=== PATIENT | male | born 1955 | race Two or more races ===

== ENCOUNTER 2024-11-28 06:24 | Inpatient (IN) | payer OTHER ==
[~2024-11-28] VITALS: Ht 172.7 cm; Wt 95.6 kg
--- NOTE | 2024-11-28 06:39 | ED.PDOC ---
HPI (NEURO) HPI Comments This is a 69 year old male GRISELDAA presenting to the ED with chief complaint of left sided weakness. Patient reports that he has been experiencing left sided arm and leg weakness with associated left sided facial droop since Tuesday. Patient relays that he noticed his weakness when he could not open a bottle and had trouble drinking out of it, but thought it would get better over time and did not come to the ED. Patient denies any chest pain, SOB, dizziness, N/V/D, abdominal pain, headache, tingling, or numbness of extremities. Chief Complaint: Left Sided Weakness Time Seen by MD: 06:27 Reviewed Notes: Nurses Notes, Fisheries Management Biologist Notes, Medications, Allergies Information Source: Patient, Emergency Med Personnel Mode of Arrival: EMS Severity: Moderate Dizziness/Weakness Severity: Unable to do activities Headache Severity: None Timing: Days Duration: Since onset Prehospital treatment: None Weakness Location: (L) Arm, (L) Leg Onset: At rest Circumstances: Spontaneous Symptoms: Weakness Before: Normal Past Medical History PAST MEDICAL HISTORY: Denies Surgical History: Denies all surgeries Family History Family History: Reviewed,noncontributory to illness Social History Smoker: Non-Smoker Alcohol: Denies ETOH Use Drugs: Denies Drug Use Lives In: Home Constitutional: denies: chills, diaphoresis, fatigue, fever, malaise, sweats, weakness, others EENTM: denies: blurred vision, double vision, ear bleeding, ear discharge, ear drainage, ear pain, ear ringing, eye pain, eye redness, hearing loss, mouth pain, mouth swelling, nasal discharge, nose bleeding, nose congestion, nose pain, photophobia, tearing, throat pain, throat swelling, voice changes, others Respiratory: denies: cough, hemoptysis, orthopnea, SOB at rest, shortness of breath, SOB with excertion, stridor, wheezing, others Cardiovascular: denies: chest pain, dizzy spells, diaphoresis, Dyspnea on exertion, edema, irregular heart beat, left arm pain, lightheadedness, palpitations, PND, syncope, others Gastrointestinal: denies: abdomen distended, abdominal pain, blood streaked bowels, constipated, diarrhea, dysphagia, difficulty swallowing, hematemesis, melena, nausea, poor appetite, poor fluid intake, rectal bleeding, rectal pain, vomiting, others Genitourinary: denies: burning, dysuria, flank pain, frequency, hematuria, incontinence, penile discharge, penile sore, pain, testicle pain, testicle swelling, urgency, others Neurological: reports: left sided weakness; denies: dizziness, fainting, headache, left sided numbness, numbness, paresthesia, pre-existing deficit, right sided numbness, right sided weakness, seizure, speech problems, tingling, tremors, weakness, others Musculoskeletal: denies: back pain, gout, joint pain, joint swelling, muscle pain, muscle stiffness, neck pain, others Integumetry: denies: bruises, change in color, change in hair/nails, dryness, laceration, lesions, lumps, rash, wounds, others Allergic/Immunocompromised: denies: Difficulty Healing, Frequent Infections, Hives, Itching, others Hematologic/Lymphatic: denies: anemia, blood clots, easy bleeding, easy bruising, swollen glands, others Endocrine: denies: excessive hunger, excessive sweating, excessive thirst, excessive urination, flushing, intolerance to cold, intolerance to heat, unexplained weight gain, unexplained weight loss, others Psychiatric: denies: anxiety, bipolar disorder, depression, hopeless, panic disorder, schizophrenia, sleepless, suicidal, others All Other Systems: Reviewed and Negative Physical Exam General Appearance: No Apparent Distress, Normal HEENT: Normal ENT Inspection, Pharynx Normal, TMs Normal, Other (Left sided facial droop noted.) Neck: Full Range of Motion, Non-Tender, Normal, Normal Inspection Respiratory: Chest Non-Tender, Lungs Clear, No Accessory Muscle Use, No Respiratory Distress, Normal Breath Sounds Cardiovascular: No Edema, No JVD, No Murmur, No Gallop, Normal Peripheral Pulses, Regular Rate/Rhythm Breast Exam: Deferred Gastrointestinal: No Organomegaly, Non Tender, No Pulsatile Mass, Normal Bowel Sounds, Soft Genitalia: Deferred Pelvic: Deferred Rectal: Deferred Extremities: No calf tenderness, Normal capillary refill, Normal inspection, Normal range of motion, Non-tender, No pedal edema Musculoskeletal : Apperance: Normal Neurologic: Alert, data acquisition technician II-XII nml as Tested, Other (Left sided arm and leg strength 3/5.) Cerebellar Function: Normal Reflexes: Normal Skin: Dry, Normal Color, Warm Lymphatic: No Adenopathy Was a procedure done? Was a procedure done?: No Differential Diagnosis (SZ) Seizure: N/A CVA: CVA, Electrolyte Imbalance, Hypoxemia General Weakness: N/A Headache: N/A X-Ray, Labs, Meds, VS Vital Signs Date Time Temp Pulse Resp B/P (MAP) Pulse Ox O2 Delivery O2 Flow Rate FiO2 11/28/24 07:48 97.4 62 16 141/71 (94) 97 97.4 11/28/24 07:48 62 16 98 Room Air* 0 21 11/28/24 06:47 66 18 96 Room Air* 0 21 11/28/24 06:47 98.1 66 18 149/66 (93) 98.1 11/28/24 06:25 98.7 75 22 169/93 (118) 98 98.7 Lab Test 11/28/24 08:01 11/28/24 06:34 Range/Units Troponin I High Sensitivity Pending 11 </=54 ng/L White Blood Count 6.1 4.4-10.8 10^3/uL Red Blood Count 4.92 4.5-5.90 10^6/uL Hemoglobin 15.1 13.5-17.5 g/dL Hematocrit 44.6 41.0-53.0 % Mean Corpuscular Volume 90.6 80.0-100.0 fL Mean Corpuscular Hemoglobin 30.7 28.0-32.0 pg Mean Corpuscular Hemoglobin Concent 33.9 32.0-36.0 g/dL Red Cell Distribution Width 13.7 11.8-14.3 % Platelet Count 170 140-450 10^3/uL Mean Platelet Volume 9.5 6.9-10.8 fL Neutrophils (%) (Auto) 64.8 37.0-80.0 % Lymphocytes (%) (Auto) 25.7 10.0-50.0 % Monocytes (%) (Auto) 6.5 0.0-12.0 % Eosinophils (%) (Auto) 2.4 0.0-7.0 % Basophils (%) (Auto) 0.6 0.0-2.0 % Neutrophils # (Auto) 3.9 1.6-8.6 10 ^3/uL Lymphocytes # (Auto) 1.6 0.4-5.4 10 ^3/uL Monocytes # (Auto) 0.4 0-1.3 10 ^3/uL Eosinophils # (Auto) 0.1 0-0.8 10 ^3/uL Basophils # (Auto) 0 0-0.2 10 ^3/uL Nucleated Red Blood Cells 0.0 % Sodium Level 141 136-145 mmol/L Potassium Level 4.2 3.5-5.1 mmol/L Chloride Level 107 98-107 mmol/L Carbon Dioxide Level 25 20-31 mmol/L Anion Gap 9 5-15 Blood Urea Nitrogen 13 9-23 mg/dL Creatinine 0.89 0.700-1.30 mg/dL Glomerular Filtration Rate Calc 93 >90 mL/min BUN/Creatinine Ratio 14.6 10.0-20.0 Serum Glucose 127 H 74-106 mg/dL Calcium Level 9.5 8.7-10.4 mg/dL CT Head: FINDINGS: There is no acute intracranial hemorrhage. No mass effect or midline shift. Small lucency in the right basal ganglia possible chronic lacunar infarct or prominent perivascular space. Focal area hypoattenuation in the right anterior frontal lobe, likely secondary to infarct, of uncertain age, possibly subacute, measuring up to 2.6 cm in greatest dimension. Focal area of hypoattenuation more posteriorly in the right parietal lobe appears chronic or subacute to chronic. The ventricles and sulci are within normal limits in size for age. Basal cisterns are patent. The calvarium is unremarkable. Paranasal sinuses and mastoid air cells are clear. IMPRESSION: 1. No evidence of acute intracranial hemorrhage. 2. Focal areas of hypoattenuation in the right frontal and parietal lobes, with the area of hypoattenuation in the anterior right frontal lobe possibly subacute. The area of hypoattenuation in the parietal lobe is most likely chronic or subacute to chronic. Correlate with clinical findings. If clinically indicated, MRI could be obtained. Chest XR: FINDINGS: LUNGS AND PLEURAL SPACES: Unremarkable. No consolidation. No pneumothorax. HEART: Unremarkable. No cardiomegaly. MEDIASTINUM: Unremarkable. Normal mediastinal contour. BONES/JOINTS: Unremarkable. No acute fracture. OTHER FINDINGS: . IMPRESSION: No acute cardiopulmonary process. Images Reviewed?: Images reviewed and evaluated by me Time of 1ST Reevaluation: 07:27 Reevaluation 1ST: Unchanged Patient Education/Counseling: Diagnosis, Treatment Family Education/Counseling: No Family Present Additional Information Previous visits reviewed: None The following tests were ordered, and results were reviewed by me: CBC, BMP, Troponin, UA, Chest XR, CT Head Additional Information was gathered from interviewing the following independent historians: EMS I reviewed and agreed with the following test results read by other providers: Chest XR, CT Head I discussed treatment and results with medical personnel and: patient Comprehensive systems review obtained and negative except for what is stated in the HPI. Departure 1 Departure Time of Disposition: 08:40 (Patient with CVA. Patient's said the window for any acute interventions. We will admit patient for further workup and expert consultation) Impression: Primary Impression: CVA (cerebral vascular accident) Qualified Codes: I63.9 - Cerebral infarction, unspecified Disposition: 09 ADMITTED INPATIENT Admit to: Med Surg Condition: Serious Critical Care Note Critical Care Time?: Yes Critical care comment: Concern for CVA Authorized and Performed by: Remigio Valencia MD Total critical care time: Approximately 38 minutes Due to a high probability of clinically significant, life threatening deterioration, the patient required my highest level of preparedness to intervene emergently and I personally spent this critical care time directly and personally managing the patient. This critical care time included obtaining a history; examining the patient; pulse oximetry; ordering and review of studies; arranging urgent treatment with development of a management plan; evaluation of patient's response to treatment; frequent reassessment; and, discussions with other providers. This critical care time was performed to assess and manage the high probability of imminent, life-threatening deterioration that could result in multi-organ failure. It was exclusive of separately billable procedures and treating other patients and teaching time. Please see my other sections and the rest of the note for further information on patient assessment and treatment. Stability Stability form required: No Heart Score Heart Score: Heart Score Response (Comments) Value History N/A 0 EKG N/A 0 Age N/A 0 Risk Factors N/A 0 Troponin N/A 0 Total 0 I personally scribed for REMIGIO VALENCIA MD ([email or web address]) on 11/28/24 at 06:39. Electronically submitted by Jhonathan Cano ([email or web address]). I personally scribed for REMIGIO VALENCIA MD ([email or web address]) on 11/28/24 at 06:48. Electronically submitted by Jhonathan Cano ([email or web address]). I personally scribed for REMIGIO VALENCIA MD ([email or web address]) on 11/28/24 at 08:33. Electronically submitted by Jhonathan Cano ([email or web address]). REMIGIO VALENCIA MD Nov 28, 2024 06:39
[2024-11-28 06:47] VITALS: PULSE 66; RESP 18; O2SAT 96
[2024-11-28 06:50] LABS: Basophils # (auto) 0 10 ^3/uL (0-0.2); Basophils % (auto) 0.6 % (0.0-2.0); Eosinophils # (auto) 0.1 10 ^3/uL (0-0.8); Eosinophils % (auto) 2.4 % (0.0-7.0); Hematocrit 44.6 % (41.0-53.0); Hemoglobin 15.1 g/dL (13.5-17.5); Lymphocytes # (auto) 1.6 10 ^3/uL (0.4-5.4); Lymphocytes % (auto) 25.7 % (10.0-50.0); Mean Corpuscular Hemoglobin 30.7 pg (28.0-32.0); Mean Corpuscular Hgb Conc. 33.9 g/dL (32.0-36.0); Mean Corpuscular Volume 90.6 fL (80.0-100.0); Monocytes # (auto) 0.4 10 ^3/uL (0-1.3); Monocytes % (auto) 6.5 % (0.0-12.0); Neutrophils # (auto) 3.9 10 ^3/uL (1.6-8.6); Neutrophils % (auto) 64.8 % (37.0-80.0); Platelet Count (auto) 170 10^3/uL (140-450); Red Blood Cells 4.92 10^6/uL (4.5-5.90); Red Cell Distribution Width 13.7 % (11.8-14.3); White Blood Cell 6.1 10^3/uL (4.4-10.8)
[2024-11-28 07:00] LABS: Chloride 107 mmol/L (98-107); Potassium 4.2 mmol/L (3.5-5.1); Sodium 141 mmol/L (136-145)
[2024-11-28 07:01] LABS: Anion Gap 9 (5-15); Carbon Dioxide 25 mmol/L (20-31)
[2024-11-28 07:02] LABS: Calcium 9.5 mg/dL (8.7-10.4)
[2024-11-28 07:07] LABS: BUN/Creatinine Ratio 14.6 (10.0-20.0); Blood Urea Nitrogen 13 mg/dL (9-23)
[2024-11-28 07:08] LABS: Glucose 127 mg/dL (74-106)
--- NOTE | 2024-11-28 07:24 | DVH ---
EXAM: XR Chest, 1 View CLINICAL INDICATION: left sided weakness TECHNIQUE: Frontal view of the chest. COMPARISON: None FINDINGS: LUNGS AND PLEURAL SPACES: Unremarkable. No consolidation. No pneumothorax. HEART: Unremarkable. No cardiomegaly. MEDIASTINUM: Unremarkable. Normal mediastinal contour. BONES/JOINTS: Unremarkable. No acute fracture. OTHER FINDINGS: . IMPRESSION: No acute cardiopulmonary process.
--- NOTE | 2024-11-28 07:38 | DVH ---
CLINICAL INFORMATION: 69 years old, Male; left sided weakness. TECHNIQUE: Axial imaging was obtained through the brain without contrast. Coronal and sagittal reform atted images were obtained, reviewed, and stored. Images were reviewed in brain and bone windows. Al l CT scans at this medical facility are performed using dose modulation techniques as appropriate to a performed exam including the following: Automated exposure control was utilized; adjustment of the MA and/or KV according to patient size; and use of iterative reconstruction technique. CTDIvol = 57.2 mGy DLP = 916.87 mGy-cm COMPARISON: None FINDINGS: There is no acute intracranial hemorrhage. No mass effect or midline shift. Small lucency i n the right basal ganglia possible chronic lacunar infarct or prominent perivascular space. Focal are a hypoattenuation in the right anterior frontal lobe, likely secondary to infarct, of uncertain age, possibly subacute, measuring up to 2.6 cm in greatest dimension. Focal area of hypoattenuation more posteriorly in the right parietal lobe appears chronic or subacute to chronic. The ventricles and s ulci are within normal limits in size for age. Basal cisterns are patent. The calvarium is unremarka ble. Paranasal sinuses and mastoid air cells are clear. IMPRESSION: 1. No evidence of acute intracranial hemorrhage. 2. Focal areas of hypoattenuation in the right frontal and parietal lobes, with the area of hypoatten uation in the anterior right frontal lobe possibly subacute. The area of hypoattenuation in the parie bobby lobe is most likely chronic or subacute to chronic. Correlate with clinical findings. If clinical ly indicated, MRI could be obtained.
[2024-11-28 07:48] VITALS: PULSE 62; RESP 16; O2SAT 98
[2024-11-28] MEDS ORDERED: HYDROcodone-ACET 5/325MG TAB PO PRN (12:00)
[2024-11-28] MEDS ORDERED: DOCUSATE SOD 100 MG CAP PO PRN (12:00)
[2024-11-28] MEDS ORDERED: ONDANSETRON HCL 4 MG/2 ML VIAL IV PRN (12:00)
[2024-11-28] MEDS ORDERED: ACETAMINOPHEN 325 MG TAB PO PRN (12:00)
[2024-11-28 12:26] LABS: Urine Bacteria None Seen /hpf (None Seen)
[2024-11-28 12:30] LABS: Urine Blood Negative /uL (Negative); Urine Clarity Clear (Clear); Urine Color Light-Yellow (Yellow); Urine Protein, UAD Negative (Negative); Urine Specific Gravity 1.015 (1.001-1.035); Urine Squamous Epithelial Cell None Seen /hpf (<5); Urine Urobilinogen Normal (Negative); Urine WBC < 1 /HPF (0-3)
[2024-11-28] MEDS: SODIUM CHLOR 0.9% PF (SALINE LOCK) 10ML VIAL/SYR IV SCH (14:14)
--- NOTE | 2024-11-28 14:32 | DVHHP2 ---
History of Present Illness Reason for Visit: Left-sided weakness History of Present Illness The patient is a 69-year-old male who denies past medical history presented to [facility] ED with complaint of left-sided weakness for the past 4 days. Patient reports experiencing left-sided arm and leg weakness, left-sided facial droop, unable to open a bottle of water, had trouble drinking out of bottle water, getting worse today that prompted this visit. Patient was seen and evaluated in the ED, laboratory data shows WBC 6.1, platelets 170, sodium 141, potassium 4.2, BUN 13, creatinine 0.69, glucose 127, calcium 9.5, troponin 10, blood pressure 148/76, heart rate 65, temperature 97.6 F, O2 saturation 97% on room air. Head CT showed no evidence of acute intracranial hemorrhage. Please see medication orders section in the computer. My assessment, at bedside, patient denied chest pain, no diaphoresis, headache, no dizziness, no blurry vision, no shortness of breath, no nausea, no vomiting, no fever, no chills. Patient was admitted for further evaluation and medical management. Past Medical History Denies past medical history Past Surgical History Denies all surgeries Family History Reviewed, noncontributory to the management of this case. Past Social History The patient lives at home, denies smoking, alcohol or illicit drugs abuse. Review of Systems Constitutional: No: Fever, Chills, Sweats, Weakness, Malaise, Other Eyes: No: Pain, Vision change, Conjunctivae inflammation, Eyelid inflammation, Other, Redness ENT: No: Ear pain, Ear discharge, Nose pain, Nose discharge, Nose congestion, Mouth pain, Mouth swelling, Throat pain, Throat swelling, Other Respiratory: No: Cough, Dry, Shortness of breath, SOB with excertion, Wheezing, Hemoptysis, Pleuritic Pain, Sputum, Wheezing, Other Cardiovascular: No: Chest Pain, Palpitations, Orthopnea, Paroxysmal Noc. Dyspnea, Edema, Lt Headedness, Other Gastrointestinal: No: Nausea, Vomiting, Abdominal Pain, Diarrhea, Constipation, Melena, Hematochezia, Other Genitourinary: No Dysuria, No Frequency, No Incontinence, No Hematuria, No Retention, No Other Musculoskeletal: No: other, neck pain, shoulder pain, arm pain, back pain, hand pain, leg pain, foot pain Skin: No: Rash, Lesions, Jaundice, Bruising, Other Neurological: Other (Left-sided weakness); No: Weakness, Numbness, Incoordination, Change in speech, Confusion, Seizures Allergies: Coded Allergies: NO KNOWN ALLERGIES (Unverified , 11/28/24) Medications Current Medications Medications Dose Ordered Sig/Patty Route Start Time Stop Time Status Last Admin Dose Admin Hydralazine HCl 10 mg Q6HP PRN IV 11/28/24 12:00 Sodium Chloride 10 ml Q8HR IV 11/28/24 14:00 11/28/24 14:14 10 ML Acetaminophen/ Hydrocodone Bitart 1 tab Q4HP PRN PO 11/28/24 12:00 Ondansetron HCl 4 mg Q4HP PRN IV 11/28/24 12:00 Docusate Sodium 100 mg BIDPRN PRN PO 11/28/24 12:00 Acetaminophen 650 mg Q6HP PRN PO 11/28/24 12:00 Exam Vital Signs Vital Signs Date Time Temp Pulse Resp B/P (MAP) Pulse Ox O2 Delivery O2 Flow Rate FiO2 11/28/24 14:12 73 16 156/72 (100) 96 11/28/24 12:00 98.1 98.1 11/28/24 07:48 Room Air* 0 21 General Appearance: Alert, Oriented X3, Cooperative, No acute distress HEENT: Atraumatic, PERRLA, EOMI, Mucous membr. moist/pink Respiratory: Clear to auscultation, Normal air movement Cardiovascular: Regular rate, Normal S1, Normal S2, No murmurs Abdominal: Normal bowel sounds, Soft, No tenderness, No hepatospenomegaly, No masses Extremities: No clubbing, No cyanosis, No edema, Normal pulses, No tenderness/swelling Skin: No rashes, No breakdown, No significant lesion Neuro: Normal speech, Normal tone, Sensation intact, Cranial nerves 3-12 NL, Reflexes 2+, Other (Left-sided weakness) Psych/Mental Status: Mental status NL, Mood NL Labs/Xrays Labs Test 11/28/24 10:13 11/28/24 09:00 11/28/24 06:34 Range/Units Troponin I High Sensitivity 10 </=54 ng/L Urine Color Light-yellow Yellow Urine Clarity Clear Clear Urine pH 7.0 5.0-9.0 Urine Specific [place] 1.015 1.001-1.035 Urine Protein Negative Negative Urine Ketones Negative Negative Urine Blood Negative Negative /uL Urine Nitrite Negative Negative Urine Bilirubin Negative Negative Urine Urobilinogen Normal Negative mg/dL Urine Leukocyte Esterase Negative Negative /uL Urine RBC 1 0 - 3 /hpf Urine Microscopic WBC < 1 0-3 /HPF Urine Squamous Epithelial Cells None seen <5 /hpf Urine Bacteria None seen None Seen /hpf Urine Glucose Normal Normal mg/dL White Blood Count 6.1 4.4-10.8 10^3/uL Red Blood Count 4.92 4.5-5.90 10^6/uL Hemoglobin 15.1 13.5-17.5 g/dL Hematocrit 44.6 41.0-53.0 % Mean Corpuscular Volume 90.6 80.0-100.0 fL Mean Corpuscular Hemoglobin 30.7 28.0-32.0 pg Mean Corpuscular Hemoglobin Concent 33.9 32.0-36.0 g/dL Red Cell Distribution Width 13.7 11.8-14.3 % Platelet Count 170 140-450 10^3/uL Mean Platelet Volume 9.5 6.9-10.8 fL Neutrophils (%) (Auto) 64.8 37.0-80.0 % Lymphocytes (%) (Auto) 25.7 10.0-50.0 % Monocytes (%) (Auto) 6.5 0.0-12.0 % Eosinophils (%) (Auto) 2.4 0.0-7.0 % Basophils (%) (Auto) 0.6 0.0-2.0 % Neutrophils # (Auto) 3.9 1.6-8.6 10 ^3/uL Lymphocytes # (Auto) 1.6 0.4-5.4 10 ^3/uL Monocytes # (Auto) 0.4 0-1.3 10 ^3/uL Eosinophils # (Auto) 0.1 0-0.8 10 ^3/uL Basophils # (Auto) 0 0-0.2 10 ^3/uL Nucleated Red Blood Cells 0.0 % Sodium Level 141 136-145 mmol/L Potassium Level 4.2 3.5-5.1 mmol/L Chloride Level 107 98-107 mmol/L Carbon Dioxide Level 25 20-31 mmol/L Anion Gap 9 5-15 Blood Urea Nitrogen 13 9-23 mg/dL Creatinine 0.89 0.700-1.30 mg/dL Glomerular Filtration Rate Calc 93 >90 mL/min BUN/Creatinine Ratio 14.6 10.0-20.0 Serum Glucose 127 H 74-106 mg/dL Calcium Level 9.5 8.7-10.4 mg/dL PATIENT: BOB KHALIL ACCT: [id number] UNIT: [id number] : 1955 LOC: ER ROOM / BED: / AGE / SEX: 69 / M ADM STATUS: REG ER SERVICE 5 ORDERING PHYSICIAN: REMIGIO BENEDICT MD PROCEDURE(s): HWOCT - HEAD WITHOUT CONTRAST REASON: left sided weakness ORDER NUMBER(s): [id number], ACCESSION NUMBER(s): [id number] CLINICAL INFORMATION: 69 years old, Male; left sided weakness. TECHNIQUE: Axial imaging was obtained through the brain without contrast. Coronal and sagittal reformatted images were obtained, reviewed, and stored. Images were reviewed in brain and bone windows. All CT scans at this medical facility are performed using dose modulation techniques as appropriate to a performed exam including the following: Automated exposure control was utilized; adjustment of the MA and/or KV according to patient size; and use of iterative reconstruction technique. CTDIvol = 57.2 mGy DLP = 916.87 mGy-cm COMPARISON: None FINDINGS: There is no acute intracranial hemorrhage. No mass effect or midline shift. Small lucency in the right basal ganglia possible chronic lacunar infarct or prominent perivascular space. Focal area hypoattenuation in the right anterior frontal lobe, likely secondary to infarct, of uncertain age, possibly subacute, measuring up to 2.6 cm in greatest dimension. Focal area of hypoattenuation more posteriorly in the right parietal lobe appears chronic or subacute to chronic. The ventricles and sulci are within normal limits in size for age. Basal cisterns are patent. The calvarium is unremarkable. Paranasal sinuses and mastoid air cells are clear. IMPRESSION: 1. No evidence of acute intracranial hemorrhage. ORDERING PHYSICIAN: REMIGIO BENEDICT MD PROCEDURE(s): CXRP - CHEST PORTABLE REASON: left sided weakness ORDER NUMBER(s): [id number], ACCESSION NUMBER(s): [id number] EXAM: XR Chest, 1 View CLINICAL INDICATION: left sided weakness TECHNIQUE: Frontal view of the chest. COMPARISON: None FINDINGS: LUNGS AND PLEURAL SPACES: Unremarkable. No consolidation. No pneumothorax. HEART: Unremarkable. No cardiomegaly. MEDIASTINUM: Unremarkable. Normal mediastinal contour. BONES/JOINTS: Unremarkable. No acute fracture. OTHER FINDINGS: IMPRESSION: No acute cardiopulmonary process. Assessment/Plan Assessment/Plan CVA (cerebral vascular accident) Left-sided weakness Cerebral infarction, unspecified Plan 1. Admit to telemetry unit 2. Breathing treatment 3. Pain control management 4. Management of fluids and electrolytes 5. Consultation for neurology 6. Diagnostic tests head CT 7. DVT prophylaxis-on aspirin 8. Repeat labs CBC, CMP in a.m. 9. Continue with current medical management 10. Treatment plan discussed with patient and RN. Patient verbalized understanding. Plan discussed with: Patient, Spouse ( at bedside), Other (RN) My Orders Orders - MARVEL ANTONIO DNP Procedure Category Date Status Time * Neurology Consult CONS 11/28/24 Transmitted 11:59 Hydralazine Injection PHA 11/28/24 In Process (Apresoline Inject 12:00 Allergies TIFFANIE 11/28/24 In Process 11:59 Code Status CODE 11/28/24 Transmitted 11:59 Sodium Chloride Lock PHA 11/28/24 In Process (Saline Lock Ns) 14:00 Oxygen Per Hour RT 11/28/24 Transmitted 11:59 Hydrocodone-Acet PHA 11/28/24 In Process 5/325mg Tab ([place] 12:00 Ondansetron Hcl PHA 11/28/24 In Process (Zofran) 12:00 Docusate Sodium PHA 11/28/24 In Process Capsule (Colace 12:00 Fall Risk Precautions TIFFANIE 11/28/[address] 11:59 Complete Blood Count LAB 11/29/24 Verified 04:00 Comprehensive LAB 11/29/24 Verified Metabolic Panel 04:00 Cardiac DIET 11/28/24 Transmitted Diet-2gna,Lofat,Lochol Lunch Condition: Serious TIFFANIE 11/28/24 In Process 11:59 Acetaminophen Tablet PHA 11/28/24 In Process (Tylenol Tablet) 12:00 Maintain Bed Rest TIFFANIE 11/28/24 In Process 11:59 Sequential TIFFANIE 11/28/24 In Process Compression Device Problem List: (1) CVA (cerebral vascular accident) (2) Left-sided weakness (3) Cerebral infarction, unspecified Date of Service: Nov 28, 2024 Billing Provider: MARVEL ANTONIO DNP Common Visit Codes: 98479-[id number] INP/OBS CARE (HIGH) MARVEL ANTONIO DNP Nov 28, 2024 14:32
[2024-11-28] MEDS ORDERED: MORPHINE SULFATE INJ 2 MG/ml SYRG IV PRN (14:45)
[2024-11-28] MEDS ORDERED: NITROGLYCERIN 0.4 MG SL TAB SL PRN (14:45)
[2024-11-28 17:20] VITALS: BP 149/91; PULSE 74; RESP 17; TEMP 98.1; O2SAT 97
[2024-11-28 17:28] VITALS: BP 149/91; PULSE 74; RESP 17; TEMP 98.1; O2SAT 97
[2024-11-28 20:00] VITALS: PULSE 66; PULSE 71; O2SAT 96
[2024-11-28 21:00] VITALS: BP 152/75; PULSE 66; RESP 20; TEMP 97.8; O2SAT 96
[2024-11-28] MEDS: hydrALAZINE HCL 20 MG/ML VL IV PRN (22:43)
[2024-11-29] VITALS (8 sets, daily range): BP systolic 131–164; BP diastolic 69–83; PULSE 50–102; RESP 16–19; TEMP 97.5–99.1; O2SAT 97–98
[2024-11-29 06:12] LABS: Basophils # (auto) 0 10 ^3/uL (0-0.2); Basophils % (auto) 0.6 % (0.0-2.0); Eosinophils # (auto) 0.1 10 ^3/uL (0-0.8); Eosinophils % (auto) 1.7 % (0.0-7.0); Hematocrit 42.9 % (41.0-53.0); Hemoglobin 14.6 g/dL (13.5-17.5); Lymphocytes # (auto) 1.6 10 ^3/uL (0.4-5.4); Lymphocytes % (auto) 21.4 % (10.0-50.0); Mean Corpuscular Hemoglobin 30.7 pg (28.0-32.0); Mean Corpuscular Volume 90.3 fL (80.0-100.0); Monocytes # (auto) 0.5 10 ^3/uL (0-1.3); Monocytes % (auto) 7.2 % (0.0-12.0); Neutrophils # (auto) 5.2 10 ^3/uL (1.6-8.6); Neutrophils % (auto) 69.1 % (37.0-80.0); Nucleated Red Blood Cells % 0.1 %; Platelet Count (auto) 176 10^3/uL (140-450); Red Blood Cells 4.75 10^6/uL (4.5-5.90); Red Cell Distribution Width 13.5 % (11.8-14.3); White Blood Cell 7.5 10^3/uL (4.4-10.8)
[2024-11-29 06:36] LABS: Alanine Aminotransferase 27 U/L (7-40); Anion Gap 11 (5-15); Carbon Dioxide 23 mmol/L (20-31); Chloride 105 mmol/L (98-107); Sodium 139 mmol/L (136-145)
[2024-11-29 06:37] LABS: BUN/Creatinine Ratio 12.5 (10.0-20.0); Blood Urea Nitrogen 10 mg/dL (9-23); Total Protein 6.7 g/dL (5.7-8.2)
[2024-11-29 06:38] LABS: Glucose 114 mg/dL (74-106)
[2024-11-29 06:39] LABS: Albumin 4.4 g/dL (3.2-4.8); Aspartate Aminotransferase 18 U/L (13-40); Bilirubin, Total 1.8 mg/dL (0.2-1.0)
[2024-11-29 07:40] LABS: Alkaline Phosphatase 79 U/L (46-116)
--- NOTE | 2024-11-29 09:51 | DVHPN2 ---
Subjective 69-year-old male with no past medical history comes with a chief complaint of left arm weakness since yesterday morning Apparently had a similar episode 2 days before but he did not seek medical attention 48 hours later yesterday morning he woke up and noticed that his left arm was weak He came here and a CT scan of the head shows focal areas of hypoattenuation in the right frontal and parietal lobes add looked like subacute or chronic He also has a left facial droop No dysphagia or slurred speech Changes from previous H/P or p: Changes Eyes: No Pain, No Vision change, No Conjunctivae inflammation, No Eyelid inflammation, No Other, No Redness ENT: No Ear pain, No Ear discharge, No Nose pain, No Nose discharge, No Nose congestion, No Mouth pain, No Mouth swelling, No Throat pain, No Throat swelling, No Other Cardiovascular: No Chest Pain, No Palpitations, No Orthopnea, No Paroxysmal Noc. Dyspnea, No Edema, No Lt Headedness, No Other Respiratory: No Cough, No Dry, No Shortness of breath, No SOB with excertion, No Wheezing, No Hemoptysis, No Pleuritic Pain, No Sputum, No Other Gastrointestinal: No Nausea, No Vomiting, No Abdominal Pain, No Diarrhea, No Constipation, No Melena, No Hematochezia, No Other Genitourinary: No Dysuria, No Frequency, No Incontinence, No Hematuria, No Retention, No Other Musculoskeletal: No other, No neck pain, No shoulder pain, No arm pain, No back pain, No hand pain, No leg pain, No foot pain Skin: No Rash, No Lesions, No Jaundice, No Bruising, No Other Objective Vitals Vital Signs Date Time Temp Pulse Resp B/P (MAP) Pulse Ox O2 Delivery O2 Flow Rate FiO2 11/29/24 08:35 98.0 74 19 141/69 (93) 97 98.0 11/28/24 20:00 Room Air* 0 21 Intake/Output Intake and Output 11/29/24 07:00 Intake Total 600 ml Output Total 300 ml Balance 300 ml Intake Oral 600 ml Output Urine Total 300 ml General Appearance: Alert, Oriented X3, Cooperative, No acute distress Lungs: Clear to auscultation, Normal air movement Cardiovascular: Regular rate, Normal S1, Normal S2, No murmurs Abdomen: Normal bowel sounds, Soft, No tenderness Extremities: No edema Medications Current Medications Medications Dose Ordered Sig/Patty Route Start Time Stop Time Status Last Admin Dose Admin Hydralazine HCl 10 mg Q6HP PRN IV 11/28/24 12:00 11/29/24 06:35 10 MG Sodium Chloride 10 ml Q8HR IV 11/28/24 14:00 11/29/24 06:35 10 ML Acetaminophen/ Hydrocodone Bitart 1 tab Q4HP PRN PO 11/28/24 12:00 Ondansetron HCl 4 mg Q4HP PRN IV 11/28/24 12:00 Docusate Sodium 100 mg BIDPRN PRN PO 11/28/24 12:00 Acetaminophen 650 mg Q6HP PRN PO 11/28/24 12:00 Nitroglycerin 0.4 mg Q5MINP PRN SL 11/28/24 14:45 Morphine Sulfate 2 mg Q30M PRN IV 11/28/24 14:45 Laboratory Results Laboratory Tests 11/29/24 05:00 Chemistry Test 11/29/24 05:00 Albumin 4.4 g/dL (3.2-4.8) Calcium Level 9.0 mg/dL (8.7-10.4) Total Protein 6.7 g/dL (5.7-8.2) LFT Test 11/29/24 05:00 Alanine Aminotransferase (ALT) 27 U/L (7-40) Alkaline Phosphatase 79 U/L (46-116) Aspartate Amino Transferase (AST) 18 U/L (13-40) Total Bilirubin 1.8 mg/dL (0.2-1.0) H Urinalysis Test 11/28/24 09:00 Urine Color Light-yellow (Yellow) Urine Clarity Clear (Clear) Urine pH 7.0 (5.0-9.0) Urine Specific [place] 1.015 (1.001-1.035) Urine Protein Negative (Negative) Urine Ketones Negative (Negative) Urine Blood Negative /uL (Negative) Urine Nitrite Negative (Negative) Urine Bilirubin Negative (Negative) Urine Urobilinogen Normal mg/dL (Negative) Urine Leukocyte Esterase Negative /uL (Negative) Urine RBC 1 /hpf (0 - 3) Urine Microscopic WBC < 1 /HPF (0-3) Urine Squamous Epithelial Cells None seen /hpf (<5) Urine Bacteria None seen /hpf (None Seen) Urine Glucose Normal mg/dL (Normal) Assessment/Plan Assessment/Plan 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 Possible hypertension Plan Order aspirin and Plavix Order MRI of the brain Carotid Doppler Echo Neurology consult Cardiac diet Check the lipid panel in the morning Physical therapy Discussed with the at the bedside Full code Plan discussed with: Patient, Spouse My Orders Orders - DILCIA RAMSEY MD Procedure Category Date Status Time Echo 2d Mode Cardiac US 11/29/24 Logged DOP 09:09 Carotid Duplx W Color US 11/29/24 Logged DOP 09:09 Brain Head Wo Contrast MRI 11/29/24 Logged 09:09 Lipid Panel LAB 11/30/24 Verified 04:00 Aspirin Tablet PHA 11/29/24 Verified 10:00 Clopidogrel Bisulfate PHA 11/29/24 Verified (Plavix) 10:00 Apply Sling ORDERS 11/29/24 Verified 09:43 Date of Service: Nov 29, 2024 Billing Provider: DILCIA RAMSEY MD Common Visit Codes: NOT BILLABLE DILCIA RAMSEY MD Nov 29, 2024 09:51
--- NOTE | 2024-11-29 10:15 | DVH ---
CAROTID ARTERIAL DOPPLER CLINICAL HISTORY: weakness TECHNIQUE: Doppler study of bilateral carotid/vertebral arteries were performed. Comparison: None FINDINGS: The bilateral common carotid, external and internal carotid arteries appear patent without hemodynami orin significant stenosis. There is no significant flow limiting plaque formation identified. There is a small amount of homogeneous plaque at the right carotid bulb. The spectral wave forms and peak systolic velocities are within normal limits. Antegrade flow is present within the vertebral arteries. Right ICA/CCA PSV ratio = 1.5. Left ICA/CCA PSV ratio = 1.1. IMPRESSION: 1. No hemodynamically significant stenosis within the carotid arteries.
[2024-11-29] MEDS: CLOPIDOGREL BISULFATE 75 MG TAB PO SCH (10:42)
[2024-11-29] MEDS: ASPirin 81 mg TAB PO SCH (10:42)
--- NOTE | 2024-11-29 12:45 | DVH ---
EXAMINATION: MRI BRAIN HEAD WO CONTRAST INDICATION: weakness COMPARISON: None TECHNIQUE: Multiplanar, multisequence magnetic resonance imaging of the brain was performed without the use of i ntravenous contrast. FINDINGS: Subacute infarct in the right frontal and parietal lobes. There is periventricular/deep white matter T2/FLAIR hyperintensity is nonspecific, but most commonly associated with chronic microvascular disease. The ventricles and sulci are normal in size for age. Clear basal cisterns. Flow voids in the major intracranial vessels are maintained. No abnormality of the orbits. Paranasal sinuses and mastoid air cells are clear. No abnormality of the visualized osseous structures and extracranial soft tissues. IMPRESSION: Subacute infarct in the right frontal and parietal lobes.
--- NOTE | 2024-11-29 13:35 | DVHSR ---
APPROVED REPORT EXAM: Two-dimensional and M-mode echocardiogram with Doppler and color Doppler. Blood Pressure: 141/69 mmHg INDICATION weakness RISK FACTORS Height: 5'8, Weight: 211 DIMENSIONS LVDd4.0 (3.8-5.7cm)LA (2D)4.1 (1.9-4.0cm)Aortic Root3.5 (2.0-3.7cm) LVDs2.9 (2.5-4.0cm)LA (MM) (1.9-4.0cm)Aortic Cusp Exc1.6 (1.5-2.0cm) EF (%) 53.0 (55-70%)Rt. Atrium3.7 (1.9-4.0cm)Asc. Aorta3.4 cm IVSd1.0 (0.7-1.1cm)RV (D)3.3 (1.8-2.4cm) PWd1.1 (0.7-1.1cm) Mitral Valve MitralMitral Stenosis E wave0.60m/sMV Mean GR.mmHg A wave1.00m/sMV Peak GR.130mmHg E/A ratio0.62D MVAcm2 DECEL [id number] 1/2 Timems Aortic Valve Aortic ValveAortic Stenosis V11.00m/Cameron Mean GR.6mmHg V21.57m/Cameron Peak GR.10mmHg LVOT Diameter2.3 (1.8-2.4cm)Doppler AVA2.64cm2 Pulmonic Valve V21.15m/s Other Information Quality : Technically LimitedRhythm : Technically limited study due to patient position. Conclusion lvef 60% moderate LVH grade 1 diastolic dysfunction normal rv function left atrium enlarged no severe valve abnormaliteis noted
[2024-11-30 01:00] VITALS: BP 138/84; PULSE 83; RESP 18; TEMP 97.8; O2SAT 96
[2024-11-30 05:00] VITALS: BP 147/80; PULSE 70; RESP 18; TEMP 97.8; O2SAT 96
[2024-11-30 06:04] LABS: Triglycerides 111 mg/dL (< 150)
[2024-11-30 06:06] LABS: HDL Cholesterol 44 mg/dL (40-59)
[2024-11-30 06:23] LABS: Cholesterol 215 mg/dL (< 200); LDL Cholesterol 162 mg/dL (< 100)
[2024-11-30 08:00] VITALS: PULSE 89; PULSE 97; RESP 18; O2SAT 96
[2024-11-30 09:00] VITALS: BP 140/87; PULSE 89; RESP 18; TEMP 98.4; O2SAT 96
[2024-11-30] MEDS ORDERED: LISINOPRIL 5 MG TAB PO ONE (10:30)
[2024-11-30 13:00] VITALS: BP 140/87; PULSE 77; RESP 18; TEMP 98.4; O2SAT 97
--- NOTE | 2024-11-30 13:57 | DVHINCON2 ---
Date of service: Nov 30, 2024 Referring Physician Chris Reason for Consultation Left-sided weakness History of Present Illness Mr. Davis is a 69 years old right-handed gentleman with a history of obesity, he was admitted to the [facility] on 11/28/2024 with a chief compla int of left arm weakness. At this time, he is alert and fully oriented, he and his provided the following history On 11/24/2024, was sitting in the kitchen, he developed mild confusion, in the left arm weakness, he drank from a bottle with cap on, family recommended but he declined seeking for medical attention, on waking up on 11/25/2024, he was recovered to baseline On waking up on 11/28/2024, he noticed weakness in the left arm weakness, but was able to move, but after he is not able to move the left arm after arriving the [facility], he has no headache, chest pain, or other acute symptoms, he has never had similar problem before He does not snore UDS, 11/28/2024: Unremarkable CBC, 11/29/2024: Unremarkable CMP, 11/29/2024: TBI: 1.8 TG/HDL/LDL/HDL, 11/30/2024: 111/215/162/44 Echocardiogram from, 11/29/2024: lvef 60% moderate LVH grade 1 diastolic dysfunction normal rv function left atrium enlarged no severe valve abnormaliteis noted Carotid Doppler, 11/29/2024: No hemodynamically significant stenosis within the carotid arteries MRI head, 11/29/2024: Subacute infarct in the right frontal and parietal lobes. Past Medical History Obesity, he did not see a doctor until 10/2024 Past Surgical History None Family History: Patient reports no known family medical history. Family History Cancer Social History He was a tobacco smoker, but no history of alcohol or recreational substance abuse Allergies: Coded Allergies: NO KNOWN ALLERGIES (Unverified , 11/28/24) Current Medications Current Medications Medications (Trade) Dose Ordered Sig/Patty Route PRN Reason Start Time Stop Time Status Last Admin Lisinopril (Zestril Tablet) 10 mg DAILY PO 12/01/24 10:00 Atorvastatin Calcium (Lipitor) 80 mg HS PO 11/30/24 22:00 Review of Systems As above, the other systems are negative Vital Signs Vital Signs Date Time Temp Pulse Resp B/P (MAP) Pulse Ox O2 Delivery O2 Flow Rate FiO2 11/30/24 09:00 98.4 89 18 140/87 (104) 96 98.4 11/30/24 08:00 Room Air* 0 21 Physical Exam GENERAL EXAM: General: the patient is well developed and nourished. No acute distress. HEENT: Normocephalic, neck is supple, no carotid bruits. No mass. RESPIRATORY: Normal respiratory effort with symmetrical lung expansion. Lungs clear to auscultation. CARDIOVASCULAR: Regular rate and rhythm with no murmurs. S1, S2. ABDOMEN: Soft, nontender, normal bowel sound NEUROLOGICAL: MENTAL STATUS: Awake and alert. Oriented to person, place, time and general circumstances. Able to give personal history. SPEECH, LANGUAGE, HIGHER CORTICAL FUNCTION: no aphasia or dysathria. CRANIAL NERVES: #2: Intact visual michael to confrontation. The optic discs were sharp #3,4,6: Pupils are equal, round and reactive. EOMs full and conjugate. No nystagmus. #5: Facial sensation intact in all three divisions bilaterally. Mandibular strength intact. #7: Left facial weakness of upper motor neuron pattern #8: Hearing grossly normal to voice. #9,10: Uvula and soft palate rise in the midline. Swallow and voice are normal. #11: Trapezius and sternomastoid strength intact bilaterally. #12: Tongue midline. No fasciculations or atrophy. SENSATION: Sensation to touch and pinprick is normal. MOTOR: Normal tone in the upper and lower extremity. Normal muscle bulk. No fasciculations. No abnormal movements or posturing. Muscle strength of the major groups in the extremities is 5/5 except for 0-1/5 in the left upper extremity. REFLEXES: Deep tendon reflexes are symmetrical. No pathological reflexes. CEREBELLAR/COORDINATION: Finger to nose is fine in the right arm GAIT/STATION: deferred. Labs/Diagnostic Data Labs Test 11/30/24 05:14 11/29/24 05:00 11/28/24 10:13 11/28/24 09:00 Range/Units Triglycerides Level 111 < 150 mg/dL Cholesterol Level 215 H < 200 mg/dL LDL Cholesterol 162 H < 100 mg/dL HDL Cholesterol 44 40-59 mg/dL White Blood Count 7.5 4.4-10.8 10^3/uL Red Blood Count 4.75 4.5-5.90 10^6/uL Hemoglobin 14.6 13.5-17.5 g/dL Hematocrit 42.9 41.0-53.0 % Mean Corpuscular Volume 90.3 80.0-100.0 fL Mean Corpuscular Hemoglobin 30.7 28.0-32.0 pg Mean Corpuscular Hemoglobin Concent 34.0 32.0-36.0 g/dL Red Cell Distribution Width 13.5 11.8-14.3 % Platelet Count 176 140-450 10^3/uL Mean Platelet Volume 9.8 6.9-10.8 fL Neutrophils (%) (Auto) 69.1 37.0-80.0 % Lymphocytes (%) (Auto) 21.4 10.0-50.0 % Monocytes (%) (Auto) 7.2 0.0-12.0 % Eosinophils (%) (Auto) 1.7 0.0-7.0 % Basophils (%) (Auto) 0.6 0.0-2.0 % Neutrophils # (Auto) 5.2 1.6-8.6 10 ^3/uL Lymphocytes # (Auto) 1.6 0.4-5.4 10 ^3/uL Monocytes # (Auto) 0.5 0-1.3 10 ^3/uL Eosinophils # (Auto) 0.1 0-0.8 10 ^3/uL Basophils # (Auto) 0 0-0.2 10 ^3/uL Nucleated Red Blood Cells 0.1 % Sodium Level 139 136-145 mmol/L Potassium Level 4.0 3.5-5.1 mmol/L Chloride Level 105 98-107 mmol/L Carbon Dioxide Level 23 20-31 mmol/L Anion Gap 11 5-15 Blood Urea Nitrogen 10 9-23 mg/dL Creatinine 0.80 0.700-1.30 mg/dL Glomerular Filtration Rate Calc 96 >90 mL/min BUN/Creatinine Ratio 12.5 10.0-20.0 Serum Glucose 114 H 74-106 mg/dL Calcium Level 9.0 8.7-10.4 mg/dL Total Bilirubin 1.8 H 0.2-1.0 mg/dL Aspartate Amino Transferase (AST) 18 13-40 U/L Alanine Aminotransferase (ALT) 27 7-40 U/L Alkaline Phosphatase 79 46-116 U/L Total Protein 6.7 5.7-8.2 g/dL Albumin 4.4 3.2-4.8 g/dL Troponin I High Sensitivity 10 </=54 ng/L Urine Color Light-yellow Yellow Urine Clarity Clear Clear Urine pH 7.0 5.0-9.0 Urine Specific [place] 1.015 1.001-1.035 Urine Protein Negative Negative Urine Ketones Negative Negative Urine Blood Negative Negative /uL Urine Nitrite Negative Negative Urine Bilirubin Negative Negative Urine Urobilinogen Normal Negative mg/dL Urine Leukocyte Esterase Negative Negative /uL Urine RBC 1 0 - 3 /hpf Urine Microscopic WBC < 1 0-3 /HPF Urine Squamous Epithelial Cells None seen <5 /hpf Urine Bacteria None seen None Seen /hpf Urine Glucose Normal Normal mg/dL Assessment TIA on 11/24/2024 Stroke on 11/28/2024 Left facial weakness, left arm weakness secondary to acute stroke Plan/Recommendation Monitoring Supportive treatment Telemetry Aspirin 81 mg daily Plavix 75 mg for 21 days Lipitor 80 mg daily Occupational therapy Follow up with his doctors on discharge Stroke risk factors, secondary stroke prevention have discussed with him and his Okay to discharge from neurologic point of view Plan discussed with: Patient, Spouse, Other NIKKI CHARLES MD Nov 30, 2024 13:57
[2024-11-30] MEDS ORDERED: ASPI-325 PO (15:41)
[2024-11-30] MEDS ORDERED: CLOP75TA70 PO (15:41)
[2024-11-30] MEDS ORDERED: ATOR80TA PO (15:41)
[2024-11-30] MEDS ORDERED: LISI10TA34 PO (15:41)
--- NOTE | 2024-11-30 15:48 | DVHDS2 ---
Discharge Summary Date of Admission Nov 28, 2024 at 15:16 Date of Discharge: Nov 30, 2024 Labs/Diagnostic Data: Laboratory Results Test 11/30/24 05:14 11/30/24 05:00 11/29/24 05:00 11/28/24 10:13 Triglycerides Level 111 mg/dL (< 150) Cholesterol Level 215 mg/dL (< 200) LDL Cholesterol 162 mg/dL (< 100) HDL Cholesterol 44 mg/dL (40-59) Hemoglobin A1c 5.7 % A1C (<5.7) White Blood Count 7.5 10^3/uL (4.4-10.8) Red Blood Count 4.75 10^6/uL (4.5-5.90) Hemoglobin 14.6 g/dL (13.5-17.5) Hematocrit 42.9 % (41.0-53.0) Mean Corpuscular Volume 90.3 fL (80.0-100.0) Mean Corpuscular Hemoglobin 30.7 pg (28.0-32.0) Mean Corpuscular Hemoglobin Concent 34.0 g/dL (32.0-36.0) Red Cell Distribution Width 13.5 % (11.8-14.3) Platelet Count 176 10^3/uL (140-450) Mean Platelet Volume 9.8 fL (6.9-10.8) Neutrophils (%) (Auto) 69.1 % (37.0-80.0) Lymphocytes (%) (Auto) 21.4 % (10.0-50.0) Monocytes (%) (Auto) 7.2 % (0.0-12.0) Eosinophils (%) (Auto) 1.7 % (0.0-7.0) Basophils (%) (Auto) 0.6 % (0.0-2.0) Neutrophils # (Auto) 5.2 10 ^3/uL (1.6-8.6) Lymphocytes # (Auto) 1.6 10 ^3/uL (0.4-5.4) Monocytes # (Auto) 0.5 10 ^3/uL (0-1.3) Eosinophils # (Auto) 0.1 10 ^3/uL (0-0.8) Basophils # (Auto) 0 10 ^3/uL (0-0.2) Nucleated Red Blood Cells 0.1 % Sodium Level 139 mmol/L (136-145) Potassium Level 4.0 mmol/L (3.5-5.1) Chloride Level 105 mmol/L (98-107) Carbon Dioxide Level 23 mmol/L (20-31) Anion Gap 11 (5-15) Blood Urea Nitrogen 10 mg/dL (9-23) Creatinine 0.80 mg/dL (0.700-1.30) Glomerular Filtration Rate Calc 96 mL/min (>90) BUN/Creatinine Ratio 12.5 (10.0-20.0) Serum Glucose 114 mg/dL (74-106) Calcium Level 9.0 mg/dL (8.7-10.4) Total Bilirubin 1.8 mg/dL (0.2-1.0) Aspartate Amino Transferase (AST) 18 U/L (13-40) Alanine Aminotransferase (ALT) 27 U/L (7-40) Alkaline Phosphatase 79 U/L (46-116) Total Protein 6.7 g/dL (5.7-8.2) Albumin 4.4 g/dL (3.2-4.8) Troponin I High Sensitivity 10 ng/L (</=54) Test 11/28/24 09:00 Urine Color Light-yellow (Yellow) Urine Clarity Clear (Clear) Urine pH 7.0 (5.0-9.0) Urine Specific [place] 1.015 (1.001-1.035) Urine Protein Negative (Negative) Urine Ketones Negative (Negative) Urine Blood Negative /uL (Negative) Urine Nitrite Negative (Negative) Urine Bilirubin Negative (Negative) Urine Urobilinogen Normal mg/dL (Negative) Urine Leukocyte Esterase Negative /uL (Negative) Urine RBC 1 /hpf (0 - 3) Urine Microscopic WBC < 1 /HPF (0-3) Urine Squamous Epithelial Cells None seen /hpf (<5) Urine Bacteria None seen /hpf (None Seen) Urine Glucose Normal mg/dL (Normal) Other Laboratory Tests 11/29/24 05:00 Brief Hx & Hospital Course: Final diagnoses: 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 Mixed hyperlipidemia HTN 69 year old male was admitted due to left sided weakness CT and MRI showed a subacute stroke of the right frontal and parietal lobes Lipid panel showed hyperlipidemia BP is slightly elevated He was started on aspirin, Plavix and Lipitor For HTN, lisinopril 10 mg qd DC home on aspirin 81 mg qd, Plavix 75 mg qd x 21 days, Lipitor and lisinopril Home health PT and OT was ordered Stable for discharge F/U PCP MARGARITA Condition at Discharge: Stable Final Diagnosis/Problems List 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 Patient was counseled about treatment plan, medications, possible side effects, patientverbalized understanding. All questions were answered to the best of my ability. 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
[2024-11-30 17:00] VITALS: BP 115/71; PULSE 77; RESP 17; TEMP 98.4; O2SAT 97
[2024-11-30] MEDS ORDERED: ATORVASTATIN 20 MG TAB PO SCH (22:00)
[2024-12-01] MEDS ORDERED: CLOPIDOGREL BISULFATE 75 MG TAB PO SCH (10:00)
[2024-12-01] MEDS ORDERED: LISINOPRIL 5 MG TAB PO SCH (10:00)
== END 2024-11-30 18:18 | disposition home health service (06) | DRG 65 ==
LOC: ER 06:24 → EDBD 06:24 → OVERFLOW 15:16 → TELE-WESTW 17:04
PROVIDERS: ADMIT Internal Medicine Geriatric Medicine; ATTEND Internal Medicine Geriatric Medicine
DX: I63.9 Cerebral infarction, unspecified (principal); G81.94 Hemiplegia, unspecified affecting left nondominant side; I10 Essential (primary) hypertension; F17.200 Nicotine dependence, unspecified, uncomplicated; E78.2 Mixed hyperlipidemia; E66.9 Obesity, unspecified; Z79.899 Other long term (current) drug therapy; Z68.22 Body mass index [BMI] 22.0-22.9, adult
CPT/HCPCS: 36415; 70450; 70551; 71045; 80048; 80053; 80061; 81001; 83036; 84484; 85025; 93306; 93886; 96374; 97110; 97163; 99291; G0378